=== PATIENT | female | born 1995 | race African-American/Black ===

== ENCOUNTER 2017-11-11 03:24 | Emergency (ER) | payer OTHER ==
[2017-11-11 03:48] VITALS: BP 114/66; PULSE 92; TEMP 98.6; BMI 21.0
[2017-11-11] MEDS ORDERED: KETOROLAC TROMETHAMINE 60 MG/2 ML VIAL IM ONE (05:36)
--- NOTE | 2017-11-11 05:51 | PDOC ---
History of Present Illness - General Chief Complaint: Pain, Acute Stated Complaint: SEVERE CRAMPING Time Seen by Provider: 11/11/17 04:58 History Source: Patient Exam Limitations: No Limitations - History of Present Illness Initial Comments: 11/11/17 05:46 The patient is a 22F with no PMH who presents to the ER with complaints of vaginal cramping. The patient states that she had an elective on Wednesday by methotrexate. She states that her cramping started on Wednesday then improved until it woke her up in the middle of the night tonight. She describes vaginal cramping but denies any abdominal pain, profuse vaginal bleeding, vaginal discharge, fevers, chills, nausea, vomiting, diarrhea, or constipation. She states that she has been bleeding with clots but the bleeding is similar to that of a normal period for the patient. Past History - Past Medical History Allergies/Adverse Reactions: Allergies Allergy/AdvReac Type Severity Reaction Status Date / Time No Known Allergies Allergy Verified 11/11/17 03:46 Home Medications: Ambulatory Orders NK [No Known Home Medication] 11/11/17 - Suicide/Smoking/Psychosocial Hx Smoking History: Never smoked Have you smoked in the past 12 months: No Information on smoking cessation initiated: No Hx Alcohol Use: No Drug/Substance Use Hx: No Review of Systems - Review of Systems Able to Perform ROS?: Yes Comments:: 11/11/17 05:51 GENERAL/CONSTITUTIONAL: No fever or chills. No weakness. HEAD, EYES, EARS, NOSE AND THROAT: No change in vision. No ear pain or discharge. No sore throat. CARDIOVASCULAR: No chest pain, palpitations, or lightheadedness. RESPIRATORY: No cough, wheezing, shortness of breath, or hemoptysis. GASTROINTESTINAL: No nausea, vomiting, diarrhea, constipation, or abdominal pain. GENITOURINARY: Positive for vaginal cramping and bleeding (with blood clots). No dysuria, frequency, hematuria, or change in urination. MUSCULOSKELETAL: No joint or muscle swelling or pain. No neck or back pain. SKIN: No rash or lesions. NEUROLOGIC: No headache, numbness, tingling, weakness, loss of consciousness, or change in strength/sensation. ENDOCRINE: No increased thirst. No abnormal weight change. HEMATOLOGIC/LYMPHATIC: No anemia, easy bleeding, or history of blood clots. ALLERGIC/IMMUNOLOGIC: No hives or skin allergy. Is the patient limited Malay proficient: No *Physical Exam - Vital Signs Last Vital Signs Temp Pulse Resp BP Pulse Ox 98.6 F 92 H 22 114/66 99 11/11/17 03:24 11/11/17 03:24 11/11/17 03:24 11/11/17 03:24 11/11/17 03:24 - Physical Exam Comments: 11/11/17 05:57 GENERAL: Well developed, well nourished. Awake and alert. No acute distress. HEENT: Normocephalic, atraumatic. Hearing grossly normal. Moist mucous membranes. PERRLA, EOMI. No conjunctival pallor. Sclera are non-icteric. NECK: Supple. Full ROM. No JVD. CARDIOVASCULAR: Regular rate and rhythm. No murmurs, rubs, or gallops. PULMONARY: No evidence of respiratory distress. Lungs clear to auscultation bilaterally. No wheezing, rales or rhonchi. ABDOMINAL: Soft. Non-tender. Non-distended. No rebound or guarding. GENITOURINARY: No CVA tenderness bilaterally. MUSCULOSKELETAL: Normal range of motion at all joints. No bony deformities or tenderness. EXTREMITIES: No cyanosis. No clubbing. No edema. No calf tenderness. SKIN: Warm and dry. Normal capillary refill. No rashes. No jaundice. NEUROLOGICAL: Alert, awake, appropriate. Cranial nerves 2-12 intact. Normal speech. Gait is normal without ataxia. PSYCHIATRIC: Cooperative. Good eye contact. Appropriate mood and affect. Medical Decision Making - Medical Decision Making 11/11/17 05:58 The patient is a 22F with no PMH who presents with vaginal cramping after having a medical elective . The patient is refusing a pelvic exam. I have explained to her that she may have retained products of her and that a pelvic exam will help guide her diagnosis. The patient continues to refuse the pelvic exam. I have informed her on what to return for. I have also informed her to follow up with her [facility]ing [facility] and[facility] Pt agrees and will be d/c home. *DC/Admit/Observation/Transfer Diagnosis at time of Disposition: Vaginal bleeding - Discharge Dispostion Disposition: HOME Condition at time of disposition: Stable Admit: No - Referrals - Patient Instructions Printed Discharge Instructions: DI for Therapeutic : Medical Additional Instructions: Please return to the ER if symptoms persist, worsen, or new symptoms arise. Please follow up with your primary care physician in 2-3 days. Please return to the ER if you have any signs or symptoms of chest pain, shortness of breath, uncontrollable fever, chills, nausea, vomiting, numbness, tingling, or weakness in any part of your body, changes in vision, or slurred speech. - Post Discharge Activity
[2017-11-11] MEDS ORDERED: KETOROLAC TROMETHAMINE 60 MG/2 ML VIAL ONE (05:55)
== END 2017-11-11 06:32 | disposition home or self-care (01) ==
LOC: JER 03:24
PROC: 3E0233Z Introduction of Anti-inflammatory into Muscle, Percutaneous Approach (ICD-10-PCS; principal; 2017-11-11)
DX: O03.9 Complete or unspecified spontaneous abortion without complication (principal); N93.8 Other specified abnormal uterine and vaginal bleeding; R25.2 Cramp and spasm
CPT/HCPCS: 99283-25